=== PATIENT | female | born 1960 | race Caucasian/White ===

== ENCOUNTER 2017-03-09 00:48 | Emergency (ER) | payer MEDICAID ==
[~2017-03-09] VITALS: Ht 170.2 cm; Wt 66.0 kg
[~2017-03-09 00:48] MED LIST: CYCL-36 PO; IBUP800T23 PO; PHEN12.5 PO
[2017-03-09 00:55] VITALS: BP 124/72; PULSE 59; RESP 20; TEMP 96.6; O2SAT 100
[2017-03-09] MEDS ORDERED: IBUP-1129 (01:11)
[2017-03-09] MEDS ORDERED: ZOFR4TAB PO (01:11)
[2017-03-09] MEDS ORDERED: IMIT25TA PO (01:11)
[2017-03-09] MEDS ORDERED: SODIUM CHLOR 0.9% 1000 ML INJ 1,000 ML IV ONE (01:19)
[2017-03-09] MEDS ORDERED: PROCHLORPERAZINE INJ 10 MG/2 ML VIAL IVP ONE (01:30)
[2017-03-09] MEDS ORDERED: KETOROLAC TROMETHAMINE 30 MG/ML (IVP) VIAL IVP ONE (01:30)
[2017-03-09] MEDS ORDERED: SODIUM CHLORIDE 0.9% FLUSH 10 ML FLUSH IVF PRN (01:30)
[2017-03-09] MEDS ORDERED: diphenhydrAMINE HCL 50 MG/ML VIAL IVP ONE (01:30)
[2017-03-09 01:53] LABS: AUTOMATED NEUTROPHIL # 7.1 TH/MM3 (1.8-7.7); BASOPHIL % 0.3 % (0.0-2.0); EOSINOPHIL # 0.1 TH/MM3 (0-0.4); EOSINOPHIL % 0.9 % (0.0-4.0); HEMATOCRIT 36.4 % (35.0-46.0); HEMO FLAGS DIFF FINAL; LYMPH % 20.6 % (9.0-44.0); LYMPHOCYTE # 2.1 TH/MM3 (1.0-4.8); MEAN CELL VOLUME 87.2 FL (80.0-100.0); MEAN CORPUSCULAR HEMOGLOBIN 28.7 PG (27.0-34.0); MEAN CORPUSCULAR HGB CONC 32.9 % (32.0-36.0); MONO % 7.5 % (0.0-8.0); NEUT % 70.7 % (16.0-70.0); PLATELET COUNT 288 TH/MM3 (150-450); RED BLOOD COUNT 4.18 MIL/MM3 (4.00-5.30); RED CELL DISTRIBUTION WIDTH 13.5 % (11.6-17.2); WHITE BLOOD COUNT 10.1 TH/MM3 (4.0-11.0)
[2017-03-09 02:01] LABS: POTASSIUM 3.9 MEQ/L (3.5-5.1)
[2017-03-09 02:04] LABS: BICARBONATE 27.6 MEQ/L (21.0-32.0)
--- NOTE | 2017-03-09 02:10 | RADHPO ---
EXAM DATE/TIME: 03/09/2017 01:24 [place] COMPARISON: CT BRAIN W/O CONTRAST, July 02, 2014, 10:29. INDICATIONS : Cepahalgia. RADIATION DOSE: 57.43 CTDIvol (mGy) MEDICAL HISTORY : Hyperparathyroidism. SURGICAL HISTORY : Hysterectomy. Thyroidectomy. ENCOUNTER: Initial ACUITY: 1 day PAIN SCALE: 10/10 LOCATION: Left cranial TECHNIQUE: Multiple contiguous axial images were obtained of the head. Using automated exposure control and adj ustment of the mA and/or kV according to patient size, radiation dose was kept as low as reasonably a chievable to obtain optimal diagnostic quality images. FINDINGS: CEREBRUM: The ventricles are normal for age. No evidence of midline shift, mass lesion, hemorrhage or acute in farction. No extra-axial fluid collections are seen. POSTERIOR FOSSA: The cerebellum and brainstem are intact. The 4th ventricle is midline. The cerebellopontine angle i s unremarkable. EXTRACRANIAL: The visualized portion of the orbits is intact. SKULL: The calvaria is intact. No evidence of skull fracture. CONCLUSION: Normal examination. Ten Smith MD on March 09, 2017 at 2:07 Board Certified Radiologist. This report was verified electronically.
[2017-03-09 02:20] VITALS: BP 118/68; PULSE 58; RESP 16; O2SAT 98
--- NOTE | 2017-03-09 02:47 | PD ---
HPI Chief Complaint: Headache Time Seen by Provider: 01:11 Travel History International Travel<30 days: No Contact w/Intl Traveler<30days: No Traveled to known affect area: No History of Present Illness HPI The patient is a 56-year-old female with a history of migraine headaches but who has a headache now on the left side that is different from her other headaches. She has been vomiting since 6:30 and that's when the headache began. She denies any focal neurologic change, fever, diarrhea or syncopal or near syncopal spells. PFSH Past Medical History Blood Disorders: No Anxiety: Yes Cancer: No Cardiovascular Problems: Yes (PERICARDITIS) Chemotherapy: No Diabetes: No Diminished Hearing: No Endocrine: Yes (HYPERTHYROIDISM) GERD: Yes Genitourinary: No Immune Disorder: No Implanted Vascular Access Dvce: No Insomnia: Yes Musculoskeletal: Yes (CHRONIC BACK PAIN, HERNIATED DISCS, DDD) Neurologic: Yes Psychiatric: Yes Reproductive: No Respiratory: No Immunizations Current: Yes Migraines: Yes Pneumonia: Yes Radiation Therapy: No Thyroid Disease: Yes Tetanus Vaccination: > 5 Years Influenza Vaccination: Yes PNEUMOCCOCAL Vaccine (Year): 1 ?: Not Menopausal: Yes : 4 Para: 4 Dilation and Curettage (D&C): Yes Tubal Ligation: Yes (2003) Past Surgical History AICD: No Arteriovenous Shunt: No Endocrine Surgery: Yes (PARTIAL THYROIDECTOMY) Gynecologic Surgery: Yes (FIBROID TUMORS FROM BOTH BREASTS, LASER SURGERY FOR VAGINAL BLEEDING) Hysterectomy: Yes Insulin Pump: No Joint Replacement: No Pacemaker: No Thoracic Surgery: Yes (BREAST TUMOR X 2;) Tonsillectomy: Yes Other Surgery: Yes (CERVICAL PRECANCER) Social History Alcohol Use: Yes (occ) Tobacco Use: No (QUIT AUG 2016) Substance Use: No Allergies-Medications (Allergen,Severity, Reaction): Coded Allergies: Morphine (Verified Allergy, Severe, VOMITING, 03/09/17) *MDRO Multi-Drug Resistant Organism (Verified Allergy, Unknown, 03/09/17) MRSA Oxycontin (Verified Adverse Reaction, Severe, Nausea/Vomiting, 03/09/17) Reported Meds & Prescriptions Reported Meds & Active Scripts Active Reported Motrin Ib (Ibuprofen) 200 Mg Tablet 800 Zofran (Ondansetron HCl) 4 Mg Tab 4 Mg PO Q12HR PRN Imitrex (Sumatriptan Succinate) 25 Mg Tab 25 Mg PO ONCE PRN If a satisfactory response has not been obtained at 2 hours, a second dose may be administered Review of Systems Except as stated in HPI: all other systems reviewed are Neg Physical Exam Narrative GENERAL: Well-nourished, well-developed patient in moderate apparent distress with her left-sided headache. Her vital signs are normal. SKIN: Focused skin assessment warm/dry. HEAD: Normocephalic. EYES: No scleral icterus. No injection or drainage. NECK: Supple, trachea midline. No JVD or lymphadenopathy. The patient can flex neck fully without any hesitation so that the chin touches the chest. CARDIOVASCULAR: Regular rate and rhythm without murmurs, gallops, or rubs. RESPIRATORY: Breath sounds equal bilaterally. No accessory muscle use. GASTROINTESTINAL: Abdomen soft, non-tender, nondistended. MUSCULOSKELETAL: No cyanosis, or edema. BACK: Nontender without obvious deformity. No CVA tenderness. NEUROLOGICAL: Awake and alert. Cranial nerves II through XII intact. Motor and sensory grossly within normal limits. Five out of 5 muscle strength in all muscle groups. Normal speech. Data Data Last Documented VS Vital Signs Date Time Temp Pulse Resp B/P Pulse Ox O2 Delivery O2 Flow Rate FiO2 03/09/17 02:20 58 16 118/68 98 Room Air 03/09/17 00:55 96.6 Orders Complete Blood Count With Diff (03/09/17 01:19) Basic Metabolic Panel (Bmp) (03/09/17 01:19) [place] Sedimentation Rate (03/09/17 01:19) Ct Brain W/O Iv Contrast(Rout) (03/09/17 01:19) Ecg Monitoring (03/09/17 01:19) Iv Access Insert/Monitor (03/09/17 01:19) Oximetry (03/09/17 01:19) Sodium Chloride 0.9% Flush (Ns Flush) (03/09/17 01:30) Ketorolac Inj (Toradol Inj) (03/09/17 01:30) Prochlorperazine Inj (Compazine Inj) (03/09/17 01:30) Diphenhydramine Inj (Benadryl Inj) (03/09/17 01:30) Sodium Chlor 0.9% 1000 Ml Inj (Ns 1000 M (03/09/17 01:19) Labs Laboratory Tests Test 03/09/17 01:45 White Blood Count 10.1 TH/MM3 Red Blood Count 4.18 MIL/MM3 Hemoglobin 12.0 GM/DL Hematocrit 36.4 % Mean Corpuscular Volume 87.2 FL Mean Corpuscular Hemoglobin 28.7 PG Mean Corpuscular Hemoglobin 32.9 % Concent Red Cell Distribution Width 13.5 % Platelet Count 288 TH/MM3 Mean Platelet Volume 7.4 FL Neutrophils (%) (Auto) 70.7 % Lymphocytes (%) (Auto) 20.6 % Monocytes (%) (Auto) 7.5 % Eosinophils (%) (Auto) 0.9 % Basophils (%) (Auto) 0.3 % Neutrophils # (Auto) 7.1 TH/MM3 Lymphocytes # (Auto) 2.1 TH/MM3 Monocytes # (Auto) 0.8 TH/MM3 Eosinophils # (Auto) 0.1 TH/MM3 Basophils # (Auto) 0.0 TH/MM3 CBC Comment DIFF FINAL Differential Comment Erythrocyte Sedimentation Rate 4 mm/hr Sodium Level 143 MEQ/L Potassium Level 3.9 MEQ/L Chloride Level 109 MEQ/L Carbon Dioxide Level 27.6 MEQ/L Anion Gap 6 MEQ/L Blood Urea Nitrogen 24 MG/DL Creatinine 0.99 MG/DL Estimat Glomerular Filtration 58 ML/MIN Rate Random Glucose 94 MG/DL Calcium Level 8.7 MG/DL MDM Medical Decision Making Medical Screen Exam Complete: Yes Emergency Medical Condition: Yes Medical Record Reviewed: Yes Interpretation(s) The sedimentation rate is normal at 4 area the basic metabolic profile shows a BUN of 24, GFR 58 but is otherwise normal. The CBC is normal. The CT brain is unremarkable. Differential Diagnosis Migraine headache, tension headache, subarachnoid hemorrhageunlikely, cluster headache Narrative Course The patient likely has a migraine headache. It is a little different than her previous headaches so we got a CT scan. It is now 0249 and the patient feels better and does not want any more pain medications. Plan: The patient will be given Phenergan and Fioricet Additional Instructions: The Phenergan is every 6 hours as needed for nausea. It also helps headaches. The Fioricet is one tablet every 4 hours as needed at the beginning of a headache. Follow-up with her primary care physician this week. Med/Other Pt SpecificInfo: Prescription(s) given Scripts Kjipmzqorw-Iwmczxvhgrgua-Lzweqhck (Fioricet)50-300-40 Mg Cap1 Cap PO Q4H PRN ( HEADACHE) #30 CAP Ref 0 Prov:Juan Manuel Burt MD 03/09/17 Promethazine (Phenergan)25 Mg [id number] Mg PO Q6H PRN (NAUSEA OR VOMITING) #30 TAB Ref 0 Prov:Juan Manuel Burt MD 03/09/17 Promethazine (Phenergan)25 Mg [id number] Mg PO Q6H PRN (NAUSEA OR VOMITING) #30 TAB Ref 0 Prov:Juan Manuel Burt MD 03/09/17 Hghtyuherv-Xbsgncoislosd-Iimlqenf (Fioricet)50-300-40 Mg Cap1 Cap PO Q4H PRN ( HEADACHE) #30 CAP Ref 0 Prov:Juan Manuel Burt MD 03/09/17 Disposition: 01 DISCHARGE HOME Condition: Stable Juan Manuel Burt MD March 09, 2017 02:47
[2017-03-09] MEDS ORDERED: BUTA1CAP PO ×2 (02:52→02:57)
[2017-03-09] MEDS ORDERED: PROM25TA10 PO ×2 (02:52→02:57)
== END 2017-03-09 03:09 | disposition home or self-care (01) ==
LOC: PHED 00:48
DX: G43.909 Migraine, unspecified, not intractable, without status migrainosus (principal); R11.2 Nausea with vomiting, unspecified; F41.9 Anxiety disorder, unspecified; E05.90 Thyrotoxicosis, unspecified without thyrotoxic crisis or storm; K21.9 Gastro-esophageal reflux disease without esophagitis; Z79.899 Other long term (current) drug therapy; Z88.5 Allergy status to narcotic agent
CPT/HCPCS: 70450; 80048; 85025; 85652; 96361; 96374; 96375; 99285; J0780; J1200; J1885; J7030